=== PATIENT | female | born 1995 | race Caucasian/White ===

== ENCOUNTER 2016-10-24 03:54 | Inpatient (IN) | payer OTHER ==
[~2016-10-24] VITALS: Ht 152.4 cm; Wt 65.8 kg
[2016-10-24] MEDS ORDERED: PREN1TAB80 PO (05:53)
[2016-10-24] MEDS ORDERED: RINGERS SOLUTION,LACTATED 1,000 ML IV PRN (09:49)
[2016-10-24] MEDS ORDERED: RINGERS SOLUTION,LACTATED 1,000 ML IV SCH ×2 (09:49)
[2016-10-24] MEDS ORDERED: OXYTOCIN 30 UNITS/LACT RINGERS 500 ML IV ONE ×2 (09:49→21:09)
[2016-10-24] MEDS ORDERED: MISOPROSTOL 25 MCG TABLET VG SCH (10:00)
[2016-10-24] MEDS ORDERED: CITRIC ACID/SODIUM CITRATE 30 ML SOLUTION UDCUP PO PRN (10:00)
[2016-10-24] MEDS ORDERED: METOCLOPRAMIDE HCL 5 MG/ML 2 ML VIAL IVP PRN (10:00)
[2016-10-24 10:28] LABS: BASOPHILS % (AUTO) 0.3 % (0.0-2.0); HEMATOCRIT 39.3 % (36-46); HEMOGLOBIN 13.5 g/dL (12.0-16.0); LYMPHOCYTES # (AUTO) 1.7 K/uL (1.0-4.8); LYMPHOCYTES % (AUTO) 14.2 % (22.0-44.0); MEAN CORPUSCULAR HEMOGLOBIN 30.4 pg (26.0-34.0); MEAN CORPUSCULAR HGB CONC 34.3 G/dL (31.0-37.0); MEAN CORPUSCULAR VOLUME 89 fL (80-100); MONOCYTES # (AUTO) 0.8 K/uL (0.1-1.0); MONOCYTES % (AUTO) 6.8 % (2.0-9.0); NEUTROPHILS # (AUTO) 9.1 K/uL (1.8-7.7); NEUTROPHILS % (AUTO) 77.7 % (40.0-70.0); RED BLOOD CELL COUNT(AUTO) 4.43 MIL/uL (4.00-5.20); RED CELL DISTRIBUTION WIDTH 13.1 % (11.5-14.5); WHITE BLOOD COUNT (AUTO) 11.8 K/uL (4.5-11.0)
[2016-10-24] MEDS ORDERED: RINGERS SOLUTION,LACTATED 1,000 ML IV ONE (11:16)
[2016-10-24] MEDS ORDERED: MEASLES/MUMPS/RUBELLA VACCINE, LIVE 0.5 ML/VIAL SQ ONE (11:30)
[2016-10-24] MEDS ORDERED: IBUPROFEN 600 MG TABLET PO PRN (11:30)
[2016-10-24] MEDS ORDERED: GLYCERIN/WITCH HAZEL LEAF 40 PADS JAR TP PRN ×2 (11:30→21:15)
[2016-10-24] MEDS ORDERED: LANOLIN 7 GM OINTMENT TP PRN ×2 (11:30→21:15)
[2016-10-24] MEDS ORDERED: OxyCODONE HCL/ACETAMINOPHEN 5-325 MG TABLET PO PRN ×2 (11:30)
[2016-10-24] MEDS ORDERED: BENZOCAINE 20%/MENTHOL 56 GM SPRAY CANISTER TP PRN ×2 (11:30→21:15)
[2016-10-24] MEDS ORDERED: BUPIVACAINE HCL/PF 0.25% 10 ML VIAL ONE (11:55)
[2016-10-24] MEDS ORDERED: LIDOCAINE HCL/PF 2% 5 ML VIAL ONE (11:55)
[2016-10-24] MEDS ORDERED: FentaNYL/BUPIV 0.125%/NS/PF 200 ML ED ONE (11:56)
[2016-10-24] MEDS ORDERED: FentaNYL/BUPIV 0.125%/NS/PF 200 ML ED PRN (12:31)
[2016-10-24] MEDS ORDERED: NALBUPHINE HCL 10 MG/ML VIAL IVP PRN ×2 (12:45)
[2016-10-24] MEDS ORDERED: ONDANSETRON HCL 4 MG/2 ML VIAL IVP PRN (12:45)
[2016-10-24] MEDS ORDERED: DiphenhydrAMINE HCL 50 MG/ML VIAL IVP PRN (12:45)
[2016-10-24] MEDS ORDERED: PROMETHAZINE HCL 12.5 MG in SODIUM CHLORIDE 0.9% 50 ML IV PRN (12:45)
[2016-10-24] MEDS ORDERED: OXYTOCIN 30 UNITS/LACT RINGERS 500 ML IV PRN (15:45)
[2016-10-24] MEDS ORDERED: OXYGEN THERAPY IH SCH (20:00)
[2016-10-24] MEDS ORDERED: MAGNESIUM HYDROXIDE SUSPENSION 30 ML UDCUP PO SCH (21:00)
[2016-10-24] MEDS: IBUPROFEN 800 MG TABLET PO PRN (22:03)
[2016-10-25] MEDS: OxyCODONE HCL/ACETAMINOPHEN 5-325 MG TABLET PO PRN ×3 (02:26→15:57)
[2016-10-25 07:25] LABS: BASOPHILS # (AUTO) 0.03 K/uL (0.00-0.20); BASOPHILS % (AUTO) 0.2 % (0.0-2.0); EOSINOPHILS # (AUTO) 0.05 K/uL (0.00-0.70); HEMOGLOBIN 11.5 g/dL (12.0-16.0); LYMPHOCYTES # (AUTO) 1.9 K/uL (1.0-4.8); LYMPHOCYTES % (AUTO) 11.6 % (22.0-44.0); MEAN CORPUSCULAR HEMOGLOBIN 30.7 pg (26.0-34.0); MEAN CORPUSCULAR HGB CONC 33.7 G/dL (31.0-37.0); MEAN CORPUSCULAR VOLUME 91 fL (80-100); MONOCYTES # (AUTO) 1.6 K/uL (0.1-1.0); MONOCYTES % (AUTO) 9.6 % (2.0-9.0); NEUTROPHILS % (AUTO) 78.4 % (40.0-70.0); RED BLOOD CELL COUNT(AUTO) 3.74 MIL/uL (4.00-5.20); RED CELL DISTRIBUTION WIDTH 13.5 % (11.5-14.5); WHITE BLOOD COUNT (AUTO) 16.5 K/uL (4.5-11.0)
[2016-10-25] MEDS: IBUPROFEN 800 MG TABLET PO PRN ×3 (07:59→22:05)
[2016-10-25] MEDS: MAGNESIUM HYDROXIDE SUSPENSION 30 ML UDCUP PO PRN ×2 (09:45→22:04)
[2016-10-26] MEDS: OxyCODONE HCL/ACETAMINOPHEN 5-325 MG TABLET PO PRN ×2 (02:13→10:38)
[2016-10-26] MEDS: MAGNESIUM HYDROXIDE SUSPENSION 30 ML UDCUP PO PRN (08:49)
[2016-10-26] MEDS: IBUPROFEN 800 MG TABLET PO PRN (08:49)
[2016-10-26] MEDS ORDERED: DSS100 PO (10:20)
[2016-10-26] MEDS ORDERED: IBUP-2070 PO (10:20)
== END 2016-10-26 11:20 | disposition home or self-care (01) | DRG 775 ==
LOC: OBSVTOIN 03:54 → 4S 03:54
PROVIDERS: ADMIT Obstetrics & Gynecology; ATTEND Obstetrics & Gynecology
PROC: 10D07Z6 Extraction of Products of Conception, Vacuum, Via Natural or Artificial Opening (ICD-10-PCS; principal; 2016-10-24)
PROC: 0KQM0ZZ Repair Perineum Muscle, Open Approach (ICD-10-PCS; 2016-10-24)
PROC: 10907ZC Drainage of Amniotic Fluid, Therapeutic from Products of Conception, Via Natural or Artificial Opening (ICD-10-PCS; 2016-10-24)
PROC: 3E0R3CZ (ICD-10-PCS; 2016-10-24)
PROC: 00HU33Z Insertion of Infusion Device into Spinal Canal, Percutaneous Approach (ICD-10-PCS; 2016-10-24)
PROC: 3E0134Z Introduction of Serum, Toxoid and Vaccine into Subcutaneous Tissue, Percutaneous Approach (ICD-10-PCS; 2016-10-24)
DX: O77.0 Labor and delivery complicated by meconium in amniotic fluid (principal); O63.1 Prolonged second stage (of labor); O70.1 Second degree perineal laceration during delivery; Z37.0 Single live birth; Z3A.40 40 weeks gestation of pregnancy; Z23 Encounter for immunization
CPT/HCPCS: 86850; 86900; 86901; J2590; J3490; J7120